=== PATIENT | male | born 1975 | race Caucasian/White ===

== ENCOUNTER 2017-04-21 17:55 | Emergency (ER) | payer BC, OTHER ==
--- NOTE | 2017-04-21 19:33 | RAD ---
HISTORY: Headache COMPARISONS: None TECHNIQUE: Multiple contiguous axial CT scans were obtained of the head without intravenous contrast. FINDINGS: HEMORRHAGE/INFARCT: There is no hemorrhage or acute infarct. MASSES/SHIFT: There is no mass or shift. EXTRA-AXIAL SPACES: There are no extra-axial fluid collections. SULCI AND VENTRICLES: The sulci and ventricles are normal in size and position for the patient's stated age. CEREBRUM: There are no focal parenchymal abnormalities. BRAINSTEM: There are no focal parenchymal abnormalities. CEREBELLUM: There are no focal parenchymal abnormalities. VESSELS: The vessels are grossly normal. PARANASAL SINUSES: The paranasal sinuses are clear. ORBITS: The orbits are unremarkable. BONES AND SOFT TISSUE: No bone or soft tissue abnormalities are noted. OTHER: None IMPRESSION: NO ACUTE INTRACRANIAL PATHOLOGY.
[2017-04-21 19:46] LABS: Hematocrit 46 % (42-52); Hemoglobin 15.6 g/dl (14.0-18.0); Mean Corpuscular HGB Conc 34 g/dl (31-36); Mean Corpuscular Hemoglobin 31 pg (27-31); Mean Corpuscular Volume 90 fL (80-94); Mean Platelet Volume 8 um3 (7.4-10.4); Red Blood Count 5.12 10^6/ul (4.0-5.4); Red Cell Distribution Width 13 % (10.5-15); White Blood Count 13.5 10^3/ul (3.5-10.8)
[2017-04-21 20:02] LABS: Albumin 4.1 g/dL (3.2-5.2); BUN/Creatinine Ratio 10.5 (8-20); Calcium 9.4 mg/dL (8.6-10.3); EGFR African American 112.9 (>60); EGFR Non-African American 87.8 (>60); Globulin 2.8 g/dL (2-4); Potassium 3.6 mmol/L (3.5-5.0); Total Bilirubin 0.3 mg/dL (0.2-1.0); Total Protein 6.9 g/dL (6.4-8.9)
--- NOTE | 2017-04-21 21:20 | ED ---
I, Oh,Costa, scribed for Brianna Johnson MD on 04/21/17 at 1911 . Headache - HPI Summary HPI Summary: This 42 y/o male presents to ED for diffuse HART since 1000 AM this morning. Positive n/v, increased hours of sleeping, and. PMHx includes HIV with low viral load, per pt, but pt and his boyfriend at bedside have been noncompliant since 2 months ago. Pt admits that he abuses meth, and reports that his dose of meth is a week ago. Primary care involves provider in [place]. - History Of Current Complaint Chief Complaint: EDHeadache Stated Complaint: HEADACHE, VOMITING Time Seen by Provider: 04/21/17 18:31 Hx Obtained From: Patient, Family/Farm Advisor - boyfriend present at bedside Onset/Duration: Sudden Onset Timing: Constant Character: Dull Location of Headache: Diffuse Aggravating Factor: Nothing Associated Signs And Symptoms: Nausea, Vomiting, Other (Noted In Comments) - Increased hour of sleep - Allergies/Home Medications Allergies/Adverse Reactions: Allergies Allergy/AdvReac Type Severity Reaction Status Date / Time Morphine Allergy Rash Verified 12/01/15 01:31 PMH/Surg Hx/FS Hx/Imm Hx Infectious Disease History: Yes - HIV positive Infectious Disease History: Denies: Traveled Outside the [place] in Last 30 Days - Family History Known Family History: Negative: Cardiac Disease, Hypertension, Diabetes - Social History Alcohol Use: None Hx Substance Use: Yes Substance Use Type: Reports: Other - meth Substance Use Comment - Amount & Last Used: meth, quit one week ago Hx Tobacco Use: Yes Smoking Status (MU): Heavy Every Day Tobacco Smoker Review of Systems Negative: Fever Positive: Vomiting, Nausea Positive: Headache All Other Systems Reviewed And Are Negative: Yes Physical Exam Triage Information Reviewed: Yes Vital Signs On Initial Exam: Initial Vitals Temp Pulse Resp BP Pulse Ox 97.8 F 65 18 139/92 99 04/21/17 18:01 04/21/17 18:01 04/21/17 18:01 04/21/17 18:01 04/21/17 18:01 Vital Signs Reviewed: Yes Appearance: Positive: Well-Appearing, Well-Nourished Skin: Positive: Warm, Skin Color Reflects Adequate Perfusion Head/Face: Positive: Normal Head/Face Inspection Eyes: Positive: EOMI, KAN Neck: Positive: Supple, Nontender Respiratory/Lung Sounds: Positive: Clear to Auscultation, Breath Sounds Present Cardiovascular: Positive: RRR, Pulses are Symmetrical in both Upper and Lower Extremities Abdomen Description: Positive: Nontender, Soft Musculoskeletal: Positive: Strength/ROM Intact Neurological: Positive: Sensory/Motor Intact, Alert, Oriented to Person Place, Time Psychiatric: Positive: Affect/Mood Appropriate AVPU Assessment: Alert - [place] Coma Scale Coma Scale Total: 15 Diagnostics - Vital Signs Vital Signs Temp Pulse Resp BP Pulse Ox 04/21/17 18:21 61 98 04/21/17 18:18 134/84 04/21/17 18:01 97.8 F 65 18 139/92 99 - Laboratory Lab Results: Lab Results 04/21/17 04/21/17 04/21/17 Range/Units 19:39 19:39 19:39 WBC 13.5 H (3.5-10.8) 10^3/ul RBC 5.12 (4.0-5.4) 10^6/ul Hgb 15.6 (14.0-18.0) g/dl Hct 46 (42-52) % MCV 90 (80-94) fL MCH 31 (27-31) pg MCHC 34 (31-36) g/dl RDW 13 (10.5-15) % Plt Count 306 (150-450) 10^3/ul MPV 8 (7.4-10.4) um3 Neut % (Auto) 61.7 (38-83) % Lymph % (Auto) 28.2 (25-47) % [place] % (Auto) 8.9 (1-9) % Eos % (Auto) 0.8 (0-6) % Baso % (Auto) 0.4 (0-2) % Absolute Neuts (auto) 8.3 H (1.5-7.7) 10^3/ul Absolute Lymphs (auto) 3.8 (1.0-4.8) 10^3/ul Absolute Monos (auto) 1.2 H (0-0.8) 10^3/ul Absolute Eos (auto) 0.1 (0-0.6) 10^3/ul Absolute Basos (auto) 0.1 (0-0.2) 10^3/ul Absolute Nucleated RBC 0.01 10^3/ul Nucleated RBC % 0 Sodium 138 (133-145) mmol/L Potassium 3.6 (3.5-5.0) mmol/L Chloride 103 (101-111) mmol/L Carbon Dioxide 29 (22-32) mmol/L Anion Gap 6 (2-11) mmol/L BUN 10 (6-24) mg/dL Creatinine 0.95 (0.67-1.17) mg/dL Est GFR ( Amer) 112.9 (>60) Est GFR (Non-Af Amer) 87.8 (>60) BUN/Creatinine Ratio 10.5 (8-20) Glucose 113 H (70-100) mg/dL Lactic Acid 1.6 (0.5-2.0) mmol/L Calcium 9.4 (8.6-10.3) mg/dL Total Bilirubin 0.30 (0.2-1.0) mg/dL AST 17 (13-39) U/L ALT 18 (7-52) U/L Alkaline Phosphatase 61 (34-104) U/L Total Protein 6.9 (6.4-8.9) g/dL Albumin 4.1 (3.2-5.2) g/dL Globulin 2.8 (2-4) g/dL Albumin/Globulin Ratio 1.5 (1-3) Result Diagrams: 04/21/17 19:39 04/21/17 19:39 Lab Statement: Any lab studies that have been ordered have been reviewed, and results considered in the medical decision making process. - CT Brain CT Interpretation: No Acute Changes CT Interpretation Completed By: Radiologist Re-Evaluation - Re-Evaluation First Eval Re-Evaluation Time: 21:09 Headache Course/Dx - Course Course Of Treatment: 42 yo male with hiv here with his of 20 years, who says he has not been taking his hiv meds and did have a meth binge (he uses IV meth)with his boyfriend up until last week. His headache was essentially gone by the time I saw him, no fever, no rash, no meningismus, and his sxms were less that 6 hours from onset which makes the CT that shows no blood able to fully rule out sah. Pt was encouraged to start his hiv meds again. of note his cbc and lymphocyte counts look good - Diagnoses Provider Diagnoses: Headache Discharge - Discharge Plan Condition: Stable Disposition: HOME Patient Education Materials: General Headache (ED) Referrals: [facility] [place] [facility] [place]] - 2 Days The documentation as recorded by the Dhruv mena Soohyun accurately reflects the service I personally performed and the decisions made by me, Brianna Johnson MD.
[2017-04-21] MEDS ORDERED: Ondansetron TAB* 4 MG PO ONE (21:30)
[2017-04-21] MEDS ORDERED: Meclizine TAB* 12.5 MG PO ONE (21:31)
[2017-04-21 21:48] VITALS: BP 90/76
== END 2017-04-21 21:45 | disposition home or self-care (01) ==
LOC: ED 17:55
DX: R51 Headache (principal); R11.2 Nausea with vomiting, unspecified
CPT/HCPCS: 36415; 70450; 80053; 83605; 85025; 99283; A9270-GY